=== PATIENT | female | born 1995 | race Two or more races ===

== ENCOUNTER 2020-10-13 04:10 | Emergency (ER) | payer MEDICAID ==
[~2020-10-13] VITALS: Ht 167.6 cm; Wt 111.9 kg
[2020-10-13 04:17] VITALS: BP 175/88
[2020-10-13] MEDS ORDERED: DIPHENHYDRAMINE 25 MG CAPSULE ONE (04:49)
[2020-10-13] MEDS ORDERED: DEXAMETHASONE 4 MG TABLET ONE (04:49)
[2020-10-13] MEDS ORDERED: DEXAMETHASONE 4 MG TABLET PO ONE (05:00)
[2020-10-13] MEDS ORDERED: DIPHENHYDRAMINE 25 MG CAPSULE PO ONE (05:00)
== END 2020-10-13 05:40 | disposition home or self-care (01) ==
LOC: ED 05:13
DX: J02.8 Acute pharyngitis due to other specified organisms (principal); B86 Scabies; B97.89 Other viral agents as the cause of diseases classified elsewhere
CPT/HCPCS: 87081; 87880; 99283; Q0163; 87147

== ENCOUNTER 2021-04-12 00:18 | Emergency (ER) | payer MEDICAID ==
[~2021-04-12] VITALS: Ht 167.6 cm; Wt 92.8 kg
--- NOTE | 2021-04-12 00:28 | NUR ---
assessment made. ERP at bedside.
[2021-04-12] MEDS ORDERED: KETOROLAC 60 MG/2 ML ONE (00:40)
--- NOTE | 2021-04-12 00:48 | NUR ---
patient medicated for pain.
--- NOTE | 2021-04-12 00:51 | NUR ---
urine sample obtained and sent to lab.
[2021-04-12 00:58] LABS: MICROSCOPIC INDICATED
--- NOTE | 2021-04-12 00:59 | NUR ---
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
[2021-04-12] MEDS ORDERED: KETOROLAC 30 MG/1 ML IM ONE (01:00)
--- NOTE | 2021-04-12 01:00 | NUR ---
RECEIVED REPORT FROM KIKE LANGFORD
[2021-04-12 01:03] LABS: BASOPHILS % (AUTO) 0 % (0-1); EOSINOPHILS % (AUTO) 0 % (1-7); LYMPHOCYTES % (AUTO) 22 % (22-44); MEAN CORPUSCULAR HGB CONC 33.8 g/dL (32.4-35.8); MEAN PLATELET VOLUME 9.4 fL (7.4-10.4); MONOCYTES % (AUTO) 9 % (2-9); NEUTROPHILS % (AUTO) 69 % (42-75); PLATELET COUNT 240 x10^3/uL (130-400); RED BLOOD COUNT 4.32 x10^6/uL (3.82-5.3); RED CELL DISTRIBUTION WIDTH 14.3 % (9.6-15.2)
[2021-04-12 01:12] LABS: ANION GAP 6 mmol/L (5-15); CALCIUM 9.9 mg/dL (8.5-10.1); CHLORIDE 104 mmol/L (98-107); CREATININE 0.88 mg/dL (0.55-1.02)
[2021-04-12 01:13] LABS: ALANINE AMINOTRANSFERASE 21 U/L (12-78)
[2021-04-12 01:17] LABS: ALKALINE PHOSPHATASE 83 U/L (45-117); BILIRUBIN,TOTAL 0.4 mg/dL (0.2-1.0); TOTAL PROTEIN 7.8 g/dL (6.4-8.2)
[2021-04-12] MEDS ORDERED: CEFTRIAXONE 1,000 MG in DEXTROSE 5% 50 ML IVPB ONE (01:30)
[2021-04-12] MEDS ORDERED: SODIUM CHLORIDE 0.9%, 500ML IVBOLUS ONE (01:30)
--- NOTE | 2021-04-12 01:40 | NUR ---
20 G IV TO RIGHT AC, STRAIGHT CATH UA PERFORMED, PT TOLERATED PROCEDURE WELL, AND THEN TAKEN TO CT.
[2021-04-12 01:55] LABS: MICROSCOPIC INDICATED
[2021-04-12] MEDS ORDERED: OMNIPAQUE 350 MG/ML, 100ML BOTTLE ONE (02:06)
--- NOTE | 2021-04-12 02:20 | NUR ---
PT BACK FROM CT, PT HOOKED TO MONITORS, MEDICATIONS GIVEN. PT RESTING ON GURNEY, DENIES NEEDS AT THIS TIME.
[2021-04-12 03:12] VITALS: BP 118/80
--- NOTE | 2021-04-12 03:12 | NUR ---
Patient given discharge instructions and they have confirmed that they understand the instructions. Patient ambulatory with steady gait.
== END 2021-04-12 03:25 | disposition home or self-care (01) ==
LOC: ED 00:37
DX: R10.11 Right upper quadrant pain (principal); Z90.49 Acquired absence of other specified parts of digestive tract
CPT/HCPCS: 36415; 71045; 71275; 74177; 80053; 81001; 84703; 85025; 85379; 87086; 96365; 96372; 99285; J0696; J1885; J7040; Q9967